=== PATIENT | male | born 1965 | race Hispanic/Latino ===

== ENCOUNTER 2016-12-29 12:09 | Emergency (ER) | payer MEDICARE ==
[2016-12-29 13:05] LABS: Urine Drugs of Abuse Note Disclamer
[2016-12-29 13:09] LABS: Basophils % (Auto) 0.8 % (0.0-1.8); Hematocrit 42.5 % (35.5-45.6); Hemoglobin 14.3 gm/dl (11.8-15.2); Mean Corpuscular HGB Conc 34 % (32-34); Mean Corpuscular Hemoglobin 29 pg (28-32); Mean Corpuscular Volume 87 fl (84-94); Platelet Count 305 K/mm3 (140-440); Red Blood Count 4.86 M/mm3 (3.65-5.03); Red Cell Distribution Width 13.9 % (13.2-15.2); White Blood Count 8.5 K/mm3 (4.5-11.0)
[2016-12-29 13:16] LABS: Bilirubin,Urine NEG (Negative); Blood,Urine NEG (Negative); Ketones,Urine NEG (Negative); Leukocyte Esterase,Urine NEG (Negative); Mucus,Urine FEW /HPF; Nitrite,Urine NEG (Negative); Protein,Urine <15 mg/dL mg/dL (Negative); Urobilinogen,Urine < 2.0 mg/dL (<2.0)
[2016-12-29 13:21] LABS: Anion Gap 18 mmol/L; Blood Urea Nitrogen 7 mg/dL (9-20); Calcium 8.6 mg/dL (8.4-10.2); Carbon Dioxide 28 mmol/L (22-30); Chloride 94.1 mmol/L (98-107); Glucose 249 mg/dL (75-100); Potassium 3.7 mmol/L (3.6-5.0); Sodium 136 mmol/L (137-145)
--- NOTE | 2016-12-29 14:26 | Emergency Department Report ---
HPI - General Chief Complaint: Psych Time Seen by Provider: 12/29/16 13:35 - HPI HPI: The patient is a 51-year-old male who presents for evaluation of mental health. The patient reports 2-3 days of constant severe sadness, associated with suicidal ideation. The patient reports a plan to overdose or walk in front of a moving car. The patient denies fever, headache, unexplained weight loss or weight gain, heat or cold intolerance, skin, hair, or nail changes, neuro deficits, homicidal ideations, or auditory or visual hallucinations. ED Past Medical Hx - Past Medical History Hx Hypertension: Yes Hx Diabetes: Yes Hx Psychiatric Treatment: Yes (SCHIZOPHRENIA) Additional medical history: HIGH CHOLESTEROL. HYPOTHYROIDISM - Social History Smoking Status: Never Smoker - Medications Home Medications: Home Medications Medication Instructions Recorded Confirmed Last Taken Type Aspirin [Ecotrin] 81 mg PO DAILY 12/31/13 12/29/16 Unknown History Cetirizine HCl [Zyrtec] 10 mg PO DAILY 12/31/13 12/29/16 Unknown History Clonidine HCl [Catapres] 0.1 mg PO Q6H 12/31/13 12/29/16 Unknown History Fluticasone Propionate [Flonase] 2 spray INTRANASAL QHS 12/31/13 12/29/16 Unknown History Furosemide [Lasix] 40 mg PO DAILY 12/31/13 12/29/16 Unknown History Hydrochlorothiazide 25 mg PO DAILY 12/31/13 12/29/16 Unknown History Ibuprofen [Motrin] 600 mg PO Q8H PRN #20 tablet 12/31/13 12/29/16 Unknown Rx LORazepam [Ativan] 0.5 mg PO BID 12/31/13 12/29/16 Unknown History Levothyroxine [Synthroid] 75 mcg PO DAILY 12/31/13 12/29/16 Unknown History Potassium Chloride [K-Dur] 40 meq PO DAILY 12/31/13 12/29/16 Unknown History QUEtiapine [Seroquel] 200 mg PO QHS 12/31/13 12/29/16 Unknown History Sertraline [Zoloft] 100 mg PO DAILY 12/31/13 12/29/16 Unknown History Simvastatin [Zocor] 20 mg PO QHS 12/31/13 12/29/16 Unknown History busPIRone [Buspar] 10 mg PO BID 12/31/13 12/29/16 Unknown History metFORMIN [Glucophage] 500 mg PO BID 12/31/13 12/29/16 Unknown History traZODone [Desyrel] 200 mg PO QHS 12/31/13 12/29/16 Unknown History ED Review of Systems ROS: Stated complaint: SUICIDAL Other details as noted in HPI Constitutional: denies: fever ENT: denies: throat or neck pain Respiratory: denies: cough, shortness of breath Cardiovascular: denies: chest pain Endocrine: denies unexplained weight loss or gain Gastrointestinal: denies: abdominal pain, nausea Genitourinary: denies: dysuria Musculoskeletal: denies: leg swelling Skin: denies: rash Neurological: denies: headache Hematological/Lymphatic: denies: easy bleeding or easy bruising Psych: Reports sadness and suicidal ideation Physical Exam - Physical Exam Vital Signs: Vital Signs 12/29/16 12/29/16 12:29 13:09 Temperature 98.2 F Pulse Rate 95 H Respiratory 16 16 Rate Blood Pressure 140/95 O2 Sat by Pulse 98 98 Oximetry Physical Exam: General: well-nourished, well-developed, no acute distress Head: Normocephalic, atraumatic Eyes: normal sclera ENT: Mucous membranes are pale and dry Neck: trachea midline, neck supple, No neck stiffness, no cervical adenopathy Respiratory: Breath sounds equal bilaterally, no wheezing, rales, or rhonchi Cardio: S1 and S2 present, no murmurs, rubs, gallops, capillary refill is delayed Abdomen: Normoactive bowel sounds, soft abdomen, no rigidity, no guarding or rebound tenderness Chest WALL/Back: No tenderness to palpation of the chest wall, no CVA tenderness with percussion Musc: No pitting edema Skin: No rash Neuro: no facial drooping, normal speech Psych: Flat affect, poor insight, depressed mood, positive suicidal ideation ED Course Vital Signs 12/29/16 12/29/16 12:29 13:09 Temperature 98.2 F Pulse Rate 95 H Respiratory 16 16 Rate Blood Pressure 140/95 O2 Sat by Pulse 98 98 Oximetry ED Medical Decision Making - Lab Data Result diagrams: 12/29/16 12:59 12/29/16 12:59 - Medical Decision Making The patient was seen and examined by myself. The patient is placed on a monitor and storage bin tender and continuous pulse ox. On initial evaluation, the patient was found to be in no distress. Labs are obtained. T Lab results revealed elevated glucose level of 200, and otherwise are grossly unremarkable. he patient is given 1 L normal saline fluid bolus for treatment of dehydration and hyperglycemia. The patient is medically clear. Mental health is consulted. Mental health evaluates the patient and agrees that the patient is at risk of harm to self. A 1013 is completed. The patient will be admitted to a psychiatric facility once bed placement is obtained. Critical care attestation.: If time is entered above; I have spent that time in minutes in the direct care of this critically ill patient, excluding procedure time. ED Disposition Clinical Impression: Suicidal ideation, Dehydration, Acute hyperglycemia Disposition: DC/TX PSY HOSP/PSY UNIT Is pt being admited?: No Does the pt Need Aspirin: No Condition: Stable Referrals: PRIMARY CARE [Primary Care Provider] - 3-5 Days Time of Disposition: 14:26
[2016-12-29] MEDS ORDERED: NACL 0.9% 1000 ML 1,000 ML IV ONE (18:36)
[2016-12-29] MEDS: CATAPRES PO SCH (19:07)
[2016-12-29] MEDS: BUSPAR PO SCH (22:25)
[2016-12-29] MEDS: GLUCOPHAGE PO SCH (22:25)
[2016-12-29] MEDS: ATIVAN PO SCH (22:25)
[2016-12-29] MEDS: ZOCOR PO SCH (22:25)
[2016-12-30] MEDS: CATAPRES PO SCH ×5 (00:32→23:22)
[2016-12-30] MEDS: ATIVAN PO SCH ×2 (10:55→22:23)
[2016-12-30] MEDS: K-DUR PO SCH (10:56)
[2016-12-30] MEDS: GLUCOPHAGE PO SCH (10:56)
[2016-12-30] MEDS: BUSPAR PO SCH ×2 (10:56→22:24)
[2016-12-30] MEDS: HALFPRIN EC PO SCH (10:56)
[2016-12-30] MEDS: HCTZ PO SCH (10:56)
[2016-12-30] MEDS: SYNTHROID PO SCH (10:56)
[2016-12-30] MEDS: LASIX PO SCH (12:00)
--- NOTE | 2016-12-30 12:02 | Consultation ---
History of Present Illness - Reason for Consult Consult date: 12/30/16 Reason for consult: suicidal ideation - Chief Complaint Chief complaint: suicidal thoughts, daily - History of Present Psychiatric Illness Mr. Ospina is a 51 year old white male seen for psychiatric evaluation in the ER. He reports suicidal ideation daily, severe depression and anxiety, decreased sleep, paranoia, and anger outbursts (punches objects). He denies alcohol or illicit substance use. He [facility] in a penit[facility]iary and reports it is safe. He wants inpatient treatment for depressive symptoms which have worsened in the last 2 weeks. Medications and Allergies Allergies Allergy/AdvReac Type Severity Reaction Status Date / Time Penicillins AdvReac Rash Verified 12/29/16 12:32 Home Medications Medication Instructions Recorded Confirmed Last Taken Type Aspirin [Ecotrin] 81 mg PO DAILY 12/31/13 12/29/16 Unknown History Cetirizine HCl [Zyrtec] 10 mg PO DAILY 12/31/13 12/29/16 Unknown History Clonidine HCl [Catapres] 0.1 mg PO Q6H 12/31/13 12/29/16 Unknown History Fluticasone Propionate [Flonase] 2 spray INTRANASAL QHS 12/31/13 12/29/16 Unknown History Furosemide [Lasix] 40 mg PO DAILY 12/31/13 12/29/16 Unknown History Hydrochlorothiazide 25 mg PO DAILY 12/31/13 12/29/16 Unknown History Ibuprofen [Motrin] 600 mg PO Q8H PRN #20 tablet 12/31/13 12/29/16 Unknown Rx LORazepam [Ativan] 0.5 mg PO BID 12/31/13 12/29/16 Unknown History Levothyroxine [Synthroid] 75 mcg PO DAILY 12/31/13 12/29/16 Unknown History Potassium Chloride [K-Dur] 40 meq PO DAILY 12/31/13 12/29/16 Unknown History QUEtiapine [Seroquel] 200 mg PO QHS 12/31/13 12/29/16 Unknown History Sertraline [Zoloft] 100 mg PO DAILY 12/31/13 12/29/16 Unknown History Simvastatin [Zocor] 20 mg PO QHS 12/31/13 12/29/16 Unknown History busPIRone [Buspar] 10 mg PO BID 12/31/13 12/29/16 Unknown History metFORMIN [Glucophage] 500 mg PO BID 12/31/13 12/29/16 Unknown History traZODone [Desyrel] 200 mg PO QHS 12/31/13 12/29/16 Unknown History Active Meds: Active Medications Aspirin (Halfprin Ec) 81 mg PO DAILY [facility] Last Admin: 12/30/16 10:56 Dose: 81 mg Buspirone HCl (Buspar) 10 mg PO BID [facility] Last Admin: 12/30/16 10:56 Dose: 10 mg Clonidine HCl (Catapres) 0.1 mg PO Q6H [facility] Last Admin: 12/30/16 08:53 Dose: 0.1 mg Furosemide (Lasix) 40 mg PO DAILY [facility] Hydrochlorothiazide (Hctz) 25 mg PO DAILY [facility] Last Admin: 12/30/16 10:56 Dose: 25 mg Levothyroxine Sodium (Synthroid) 75 mcg PO DAILY [facility] Last Admin: 12/30/16 10:56 Dose: 75 mcg Lorazepam (Ativan) 0.5 mg PO BID [facility] Last Admin: 12/30/16 10:55 Dose: 0.5 mg Metformin HCl (Glucophage) 500 mg PO BID [facility] Last Admin: 12/30/16 10:56 Dose: 500 mg Potassium Chloride (K-Dur) 40 meq PO DAILY [facility] Last Admin: 12/30/16 10:56 Dose: 40 meq Simvastatin (Zocor) 20 mg PO QHS [facility] Last Admin: 12/29/16 22:25 Dose: 20 mg Past psychiatric history - Past Medical History Past Medical History: diabetes - past Psychiatric treatment and history Psych: Anxiety, Depression psychiatric treatment history: He believes he might have diagnosed with schizophrenia - Social History Social history: other (has lived in current penitentiary for 2 months. Has a third grade education. On [facility]) Mental Status Exam - Vital signs Last Vital Signs Temp 98.5 F 12/30/16 00:27 Pulse 91 H 12/30/16 08:53 Resp 12 12/30/16 00:27 BP 121/73 12/30/16 08:53 Pulse Ox 96 12/30/16 00:27 - Exam Narrative exam: suicidal ideation daily, worse in the last 2 weeks. Cannot contract for safety. Orientation: time, place, person Affect: depressed, anxious Mood: congruent with affect Thought content: paranoia Thought Process: Intact Perceptions: none Speech: slow Concentration: focused Motor activity: normal Level of consciousness: alert Memory: Recent Impaired, Remote Impaired Sleep Symptoms: Difficulty Falling Asleep Appetite: decreased Interaction: cooperative (Unable to complete assessment of memory as patient declined to answer stating he cannot remember anything) Results Result Diagrams: 12/29/16 12:59 12/29/16 12:59 Abnormal lab results 12/29/16 12/29/16 12/29/16 Range/Units 12:56 12:59 20:33 Sodium 136 L (137-145) mmol/L Chloride 94.1 L (98-107) mmol/L BUN 7 L (9-20) mg/dL Glucose 249 H (75-100) mg/dL POC Glucose 167 H (70-105) Ur Specific [place] 1.002 L (1.003-1.030) All other labs normal. Assessment and Plan Assessment and plan: Major depressive disorder/suicidal ideation-transfer to inpatient when bed is available.
--- NOTE | 2016-12-31 00:04 | Event Note ---
Date: 12/31/16 Vital signs reviewed and appreciated. Psychiatric consult is appreciated. Awaiting psychiatric placement. Vital Signs 12/29/16 12/29/16 12/29/16 12:29 13:09 19:54 Temperature 98.2 F 98.1 F Pulse Rate 95 H 83 Respiratory 16 16 11 L Rate Blood Pressure 140/95 Blood Pressure 104/69 [Right] O2 Sat by Pulse 98 98 96 Oximetry 12/29/16 12/30/16 12/30/16 19:57 00:27 00:32 Temperature 98.5 F Pulse Rate 75 75 Respiratory 12 12 Rate Blood Pressure 100/58 Blood Pressure 100/58 [Right] O2 Sat by Pulse 96 96 Oximetry 12/30/16 12/30/16 12/30/16 00:34 08:53 10:00 Temperature 98.6 F Pulse Rate 75 91 H 83 Respiratory 20 Rate Blood Pressure 100/58 121/73 Blood Pressure 121/76 [Right] O2 Sat by Pulse 98 Oximetry
[2016-12-31] MEDS: GLUCOPHAGE PO SCH ×2 (00:11→10:00)
[2016-12-31] MEDS: ZOCOR PO SCH (00:12)
[2016-12-31] MEDS: CATAPRES PO SCH ×3 (01:22→13:07)
[2016-12-31] MEDS: BUSPAR PO SCH (10:00)
[2016-12-31] MEDS: ATIVAN PO SCH (10:00)
[2016-12-31] MEDS: HALFPRIN EC PO SCH (10:00)
[2016-12-31] MEDS: K-DUR PO SCH (10:00)
[2016-12-31] MEDS: SYNTHROID PO SCH (10:00)
[2016-12-31] MEDS: HCTZ PO SCH (10:28)
[2016-12-31] MEDS: LASIX PO SCH (10:28)
[2016-12-31 16:22] VITALS: BP 121/86
== END 2016-12-31 16:24 ==
LOC: ED 12:09 → EEVIPCON 12:09 → ED 12-31 16:24
DX: R45.851 Suicidal ideations (principal); E86.0 Dehydration; E11.65 Type 2 diabetes mellitus with hyperglycemia; I10 Essential (primary) hypertension; E78.00 Pure hypercholesterolemia, unspecified; E03.9 Hypothyroidism, unspecified; Z79.82 Long term (current) use of aspirin
CPT/HCPCS: 36415; 80048; 80307; 81001; 82962; 85025; 96361; 96374; 99285; G0480; J7030; 80320; J1815

== ENCOUNTER 2019-11-27 20:35 | Emergency (ER) | payer MEDICARE ==
[2019-11-27] MEDS ORDERED: ASPIRIN 325 MG TAB PO ONE (21:26)
[2019-11-27 21:48] LABS: Basophils # (Auto) 0.1 K/mm3 (0.0-0.1); Basophils % (Auto) 0.6 % (0.0-1.8); Eosinophils # (Auto) 0.2 K/mm3 (0.0-0.4); Eosinophils % (Auto) 1.6 % (0.0-4.3); Lymphocytes # (Auto) 3.1 K/mm3 (1.2-5.4); Lymphocytes % (Auto) 31.8 % (13.4-35.0); Mean Corpuscular HGB Conc 35 % (32-34); Mean Corpuscular Volume 86 fl (84-94); Monocytes # (Auto) 0.7 K/mm3 (0.0-0.8); Monocytes % (Auto) 7.6 % (0.0-7.3); Platelet Count 258 K/mm3 (140-440); Red Blood Count 4.32 M/mm3 (3.65-5.03); Red Cell Distribution Width 14.5 % (13.2-15.2)
--- NOTE | 2019-11-27 21:49 | Emergency Department Report ---
ED Chest Pain HPI - General Chief Complaint: Chest Pain Stated Complaint: CHEST PAIN Time Seen by Provider: 11/27/19 21:44 Source: patient, EMS Mode of arrival: Stretcher Limitations: No Limitations - History of Present Illness Initial Comments: Patient is a 54-year-old male that comes to emergency room with complaints of chest pain 2 days. Patient states his chest pain is in his bilateral chest. Patient states his chest pain is a 8 out of 10. Patient states his chest pain is worse with movement and coughing. Patient states his chest pain is better with rest. Patient states had a cough for 4 months. Patient states he is currently at a psychiatric facility for suicidal ideation. Patient states he still having suicidal ideation. Patient is 1013 at [facility] and has a sitter with him. Patient denies shortness of breath. Patient denies chest pain radiating. MD Complaint: chest pain -: Sudden, days(s) Onset: during rest Pain Location: left chest, right chest Pain Radiation: none Severity: severe Severity scale (0 -10): 8 Quality: pressure Consistency: constant Improves With: rest Worsens With: inspiration, palpation, other re: denies: nausea, vomting, diaphoresis, dyspnea, sense of impending doom Other Symptoms: cough. denies: fever, syncope, rash, acid taste in mouth, leg swelling, palpitations, burping Treatments Prior to Arrival: none Aspirin use within the Past 7 Days: (1) Yes - Related Data On Oral Contraceptives: No Home Medications Medication Instructions Recorded Confirmed Last Taken Aspirin [Ecotrin] 81 mg PO DAILY 12/31/13 12/29/16 Unknown Cetirizine HCl [Zyrtec] 10 mg PO DAILY 12/31/13 12/29/16 Unknown Clonidine HCl [Catapres] 0.1 mg PO Q6H 12/31/13 12/29/16 Unknown Fluticasone Propionate [Flonase] 2 spray INTRANASAL QHS 12/31/13 12/29/16 Unknown Furosemide [Lasix] 40 mg PO DAILY 12/31/13 12/29/16 Unknown LORazepam [Ativan] 0.5 mg PO BID 12/31/13 12/29/16 Unknown Levothyroxine [Synthroid] 75 mcg PO DAILY 12/31/13 12/29/16 Unknown Potassium Chloride [K-Dur] 40 meq PO DAILY 12/31/13 12/29/16 Unknown QUEtiapine [Seroquel] 200 mg PO QHS 12/31/13 12/29/16 Unknown Sertraline [Zoloft] 100 mg PO DAILY 12/31/13 12/29/16 Unknown Simvastatin (Nf) [Zocor] 20 mg PO QHS 12/31/13 12/29/16 Unknown busPIRone [Buspar] 10 mg PO BID 12/31/13 12/29/16 Unknown hydroCHLOROthiazide 25 mg PO DAILY 12/31/13 12/29/16 Unknown [Hydrochlorothiazide] metFORMIN [Glucophage] 500 mg PO BID 12/31/13 12/29/16 Unknown traZODone [Desyrel] 200 mg PO QHS 12/31/13 12/29/16 Unknown Previous Rx's Medication Instructions Recorded Last Taken Type Ibuprofen [Motrin] 600 mg PO Q8H PRN #20 tablet 12/31/13 Unknown Rx Fluticasone [Flonase] 2 spray NS QDAY #1 bottle 11/27/19 Unknown Rx Allergies Allergy/AdvReac Type Severity Reaction Status Date / Time Penicillins AdvReac Rash Verified 12/29/16 12:32 Heart Score - HEART Score History: Slightly suspicious EKG: Normal Age: 45-65 Risk factors: 1-2 risk factors Troponin: < normal limit HEART Score: 2 ED Review of Systems ROS: Stated complaint: CHEST PAIN Other details as noted in HPI Constitutional: denies: chills, fever Eyes: denies: eye pain, eye discharge, vision change ENT: denies: ear pain, throat pain Respiratory: cough. denies: shortness of breath, wheezing Cardiovascular: chest pain. denies: palpitations Endocrine: no symptoms reported Gastrointestinal: denies: abdominal pain, nausea, diarrhea Genitourinary: denies: urgency, dysuria Musculoskeletal: denies: back pain, joint swelling, arthralgia Skin: denies: rash, lesions Neurological: denies: headache, weakness, paresthesias Psychiatric: denies: anxiety, depression Hematological/Lymphatic: denies: easy bleeding, easy bruising ED Past Medical Hx - Past Medical History Previous Medical History?: Yes Hx Hypertension: Yes Hx Diabetes: Yes Hx Psychiatric Treatment: Yes (SCHIZOPHRENIA) Additional medical history: HIGH CHOLESTEROL. HYPOTHYROIDISM - Surgical History Past Surgical History?: Yes Additional Surgical History: Minor surgeries to ears , and surgery to cure strabismus, eye surgery during childhood - Family History Family history: no significant - Social History Smoking Status: Never Smoker Substance Use Type: None - Medications Home Medications: Home Medications Medication Instructions Recorded Confirmed Last Taken Type Aspirin [Ecotrin] 81 mg PO DAILY 12/31/13 12/29/16 Unknown History Cetirizine HCl [Zyrtec] 10 mg PO DAILY 12/31/13 12/29/16 Unknown History Clonidine HCl [Catapres] 0.1 mg PO Q6H 12/31/13 12/29/16 Unknown History Fluticasone Propionate [Flonase] 2 spray INTRANASAL QHS 12/31/13 12/29/16 Un known History Furosemide [Lasix] 40 mg PO DAILY 12/31/13 12/29/16 Unknown History Ibuprofen [Motrin] 600 mg PO Q8H PRN #20 tablet 12/31/13 12/29/16 Unknown Rx LORazepam [Ativan] 0.5 mg PO BID 12/31/13 12/29/16 Unknown History Levothyroxine [Synthroid] 75 mcg PO DAILY 12/31/13 12/29/16 Unknown History Potassium Chloride [K-Dur] 40 meq PO DAILY 12/31/13 12/29/16 Unknown History QUEtiapine [Seroquel] 200 mg PO QHS 12/31/13 12/29/16 Unknown History Sertraline [Zoloft] 100 mg PO DAILY 12/31/13 12/29/16 Unknown History Simvastatin (Nf) [Zocor] 20 mg PO QHS 12/31/13 12/29/16 Unknown History busPIRone [Buspar] 10 mg PO BID 12/31/13 12/29/16 Unknown History hydroCHLOROthiazide 25 mg PO DAILY 12/31/13 12/29/16 Unknown History [Hydrochlorothiazide] metFORMIN [Glucophage] 500 mg PO BID 12/31/13 12/29/16 Unknown History traZODone [Desyrel] 200 mg PO QHS 12/31/13 12/29/16 Unknown History Fluticasone [Flonase] 2 spray NS QDAY #1 bottle 11/27/19 Unknown Rx ED Physical Exam - General Limitations: No Limitations General appearance: alert, in no apparent distress - Head Head exam: Present: atraumatic, normocephalic - Eye Eye exam: Present: normal appearance - ENT ENT exam: Present: mucous membranes moist, TM's normal bilaterally, normal external ear exam, other (pale nasal turbinates. No sinus tenderness noted) - Neck Neck exam: Present: normal inspection - Respiratory Respiratory exam: Present: normal lung sounds bilaterally, chest wall tenderness. Absent: respiratory distress, wheezes, rales - Cardiovascular Cardiovascular Exam: Present: regular rate, normal rhythm. Absent: systolic murmur, diastolic murmur, rubs, gallop - GI/Abdominal GI/Abdominal exam: Present: soft, normal bowel sounds - Rectal Rectal exam: Present: deferred - Extremities Exam Extremities exam: Present: normal inspection - Back Exam Back exam: Present: normal inspection - Neurological Exam Neurological exam: Present: alert, oriented X3 - Psychiatric Psychiatric exam: Present: normal affect, normal mood - Skin Skin exam: Present: warm, dry, intact, normal color. Absent: rash ED Course Vital Signs 11/27/19 21:00 Temperature 98.5 F Pulse Rate 67 Respiratory 17 Rate Blood Pressure 103/63 [right arm] O2 Sat by Pulse 98 Oximetry - Reevaluation(s) Reevaluation #1: Discussed all results with patient. Discussed plan of care patient. Patient agrees with plan of care. Patient will be discharged from the ER and sent back to his psychiatric facility to finish out his 1013. Patient is stable for discharge. Patient given discharge instruction. Patient voiced understanding of discharge instructions. 11/27/19 22:48 SLADE score - Slade Score Age > 65: (0) No Aspirin use within the Past 7 Days: (1) Yes 3 or more CAD Risk Factors: (0) No 2 or more Angina events in past 24 hrs: (0) No Known CAD with more than 50% Stenosis: (0) No Elevated Cardiac Markers: (0) No ST Deviation Greater than 0.5mm: (0) No SLADE Score: 1 ED Medical Decision Making - Lab Data Result diagrams: 11/27/19 21:36 11/27/19 21:36 - EKG Data -: EKG Interpreted by Nd EKG shows normal: sinus rhythm, intervals Rate: normal - EKG Data Interpretation: other (complete right bundle-branch block, LAFB, axis deviation.) - Radiology Data Radiology results: report reviewed, image reviewed CHEST 1 VIEW, 11/27/2019 9:31 PM CLINICAL INFORMATION/INDICATION: Chest pain COMPARISON: None FINDINGS: SUPPORT DEVICES: None. HEART: The cardiac silhouette is normal in size. LUNGS/PLEURA: The lungs are clear of focal airspace disease or significant pleural effusion ADDITIONAL FINDINGS: No additional acute findings. IMPRESSION: 1. No evidence of acute cardiopulmonary process. - Medical Decision Making Patient is a 54-year-old male that just emergency room with complaints of chest pain 2 days and cough 4 weeks. Patient's labs unremarkable. Patient chest x- ray negative for acute findings. Patient is currently at [facility] on 1012 for suicidal ideation. Patient will be discharged from the ER and transported back to his psychiatric facility to continue with his treatment. Patient will require follow-up as an outpatient to further investigate his chronic cough. On examination the patient was found have reproducible chest pain and pale nasal turbinates consistent with allergic rhinitis. Patient will be given Flonase. - Differential Diagnosis cough, chest wall pain. Chest pain. Critical care attestation.: If time is entered above; I have spent that time in minutes in the direct care of this critically ill patient, excluding procedure time. ED Disposition Clinical Impression: Chronic cough, Chest wall pain Chest pain Qualifiers: Chest pain type: unspecified Qualified Code(s): R07.9 - Chest pain, unspecified Allergic rhinitis Qualifiers: Allergic rhinitis trigger: unspecified Allergic rhinitis seasonality: unspecified Qualified Code(s): J30.9 - Allergic rhinitis, unspecified Disposition: DC/TX-65 PSY HOSP/PSY UNIT Is pt being admited?: No Does the pt Need Aspirin: No Condition: Stable Instructions: Chest Pain (ED), Costochondritis (ED), Chronic Cough (ED), Allergic Rhinitis (ED) Additional Instructions: Patient follow up with primary care in 2-3 days. Patient to be discharged from the ER and return to [facility] continue his treatment. Patient to rest. Patient to increase water. Patient to return to ER condition worsens, changes or new symptoms arise. Patient to continue all medications. Patient to take Tylenol or ibuprofen when necessary for pain. Prescriptions: Fluticasone [Flonase] 2 spray NS QDAY #1 bottle Referrals: PRIMARY CARE, [Primary Care Provider] - 2-3 Days Time of Disposition: 22:53
[2019-11-27 22:34] LABS: BUN/Creatinine Ratio 13; Blood Urea Nitrogen 12 mg/dL (9-20); Calcium 9.4 mg/dL (8.4-10.2); Hemolysis Index 11
--- NOTE | 2019-11-27 22:34 | XRay Report ---
CHEST 1 VIEW, 11/27/2019 9:31 PM CLINICAL INFORMATION/INDICATION: Chest pain COMPARISON: None FINDINGS: SUPPORT DEVICES: None. HEART: The cardiac silhouette is normal in size. LUNGS/PLEURA: The lungs are clear of focal airspace disease or significant pleural effusion ADDITIONAL FINDINGS: No additional acute findings. IMPRESSION: 1. No evidence of acute cardiopulmonary process. Signer Name: Karli Blanco MD Signed: 11/27/2019 10:30 PM Workstation Name: [id number]
[2019-11-27 23:13] VITALS: BP 101/70
== END 2019-11-27 23:10 ==
LOC: ED 20:35
DX: R05 Cough (principal); R07.89 Other chest pain; J30.9 Allergic rhinitis, unspecified; I10 Essential (primary) hypertension; E11.9 Type 2 diabetes mellitus without complications; F20.9 Schizophrenia, unspecified; E03.9 Hypothyroidism, unspecified; Z98.890 Other specified postprocedural states; Z79.1 Long term (current) use of non-steroidal anti-inflammatories (NSAID); Z79.899 Other long term (current) drug therapy; Z88.0 Allergy status to penicillin
CPT/HCPCS: 36415; 71045; 80048; 84484; 85025; 93005; 93010